=== PATIENT | female | born 1960 | race Caucasian/White ===

== ENCOUNTER 2020-05-13 10:25 | Emergency (ER) | payer SELFPAY ==
[2020-05-13] MEDS: Insulin Regular, Human 100 Units/ML 3 ML Vial ONE (10:30)
[2020-05-13] MEDS: Insulin Regular, Human 100 Units/ML 3 ML Vial SUBCUT ONE (10:30)
[2020-05-13 11:18] LABS: CHLORIDE,CL 99 mEq/L (98-106); SODIUM,NA 146 mEq/L (136-145)
[2020-05-13] MEDS: Sodium Chloride 0.9% 1,000 ML IV SCH (11:22)
[2020-05-13 11:24] LABS: O2 DELIVERY DEVICE NASAL CANNULA; O2 FLOW RATE 4.5
[2020-05-13 11:29] LABS: BASE EXCESS ARTERIAL 20.7 (-2.0-3.0); BICARBONATE,ARTERIAL 44.4 mm/L (22.0-26.0); O2 SATURATION ARTERIAL 87 % (95-98); PCO2 ARTERIAL 61 mm/Hg0 (35-45); PO2 ARTERIAL 51 mm/Hg (80-100)
[2020-05-13] MEDS: Naloxone 2 MG/2 ML Syringe IVPUSH ONE ×2 (11:32→12:36)
[2020-05-13] MEDS ORDERED: 50% Dextrose in Water 50 ML Syringe IV PRN (12:19)
[2020-05-13] MEDS ORDERED: Glucagon,Human Recombinant 1 MG Vial IM PRN (12:19)
[2020-05-13] MEDS: cefTRIAXone 2 GM Vial IVPUSH ONE (12:28)
[2020-05-13] MEDS: Potassium Chloride 20 MEQ in Premix Bag 1 BAG IV ONE (13:54)
--- NOTE | 2020-05-13 14:26 | EDM.PDOC ---
ED HPI GENERAL MEDICAL PROBLEM - General Chief Complaint: Neurological Problem Stated Complaint: WEAKNESS Time Seen by Provider: 05/13/20 10:25 Source of Information: Reports: EMS, Family History Limitations: Reports: Altered Mental Status - History of Present Illness INITIAL COMMENTS - FREE TEXT/NARRATIVE: Kristin is a 59 year old female who presents to ER per EMS with altered mental status. Daughter relates that she has been weak the last 2-3 days. Has not been eating well, vomiting. She states she has been helping her mom walk to the bathroom at times due to weakness. Daughter found her lying on the floor this am around 0800, not responding well. Called a neighbor to check on her as well and EMS was eventually called. Daughter is unaware of any head trauma, fevers. Does have chronic pain that she takes chronic narcotics for, daughter states that she is unaware of any noncompliance with her usual schedule. She does have a history of diabetes, EMS did check a sugar and noted it to be "high". IV Normal saline was initiated by EMS. EMS reports does respond to movement, sternal rub. Does not verbalize much. Blood pressure stable. Oxygen sats 90- 92% on 4 liters. Onset: Gradual Duration: Day(s):, Getting Worse Location: Reports: Generalized Severity: Severe Associated Symptoms: Reports: Confusion, Loss of Appetite, Nausea/Vomiting, Weakness. Denies: Shortness of Breath - Related Data Allergies Allergy/AdvReac Type Severity Reaction Status Date / Time No Known Allergies Allergy Verified 05/13/20 11:53 Home Meds: Home Meds Empagliflozin [Jardiance] 12.5 mg PO ASDIRECTED 05/13/20 [History] Hydrocodone/Acetaminophen [Hydrocodone-Acetamin 10-325 mg] 1 each PO ASDIRECTED 05/13/20 [History] Orphenadrine [Norflex] 100 mg PO BID PRN 05/13/20 [History] Pregabalin [Lyrica] 150 mg PO TID 05/13/20 [History] Pregabalin [Lyrica] 200 mg PO TID 05/13/20 [History] Past Medical History Musculoskeletal History: Reports: Back Pain, Chronic Endocrine/Metabolic History: Reports: Diabetes, Type II Social & Family History - Tobacco Use Tobacco Use Status *Q: Unknown Ever Used Tobacco ED ROS GENERAL - Review of Systems Review Of Systems: See Below Reason Not Obtained: obtained per daughter/EMS Constitutional: Reports: Malaise, Weakness, Fatigue, Decreased Appetite Respiratory: Denies: Shortness of Breath Cardiovascular: Denies: Chest Pain Endocrine: Reports: Fatigue GI/Abdominal: Reports: Nausea, Vomiting Neurological: Reports: Weakness - Physical Exam Exam: See Below Exam Limited By: Altered Mental Status General Appearance: Lethargic (patient nearly obtunded. Does open eyes, able to state name but needs stimulation to open eyes. ) Ears: Normal External Exam, Normal TMs Nose: Normal Inspection, Normal Mucosa, No Blood Throat/Mouth: Normal Inspection, Normal Oropharynx Head Exam: Normocephalic Neck: Normal Inspection, Supple, Non-Tender Respiratory/Chest: No Respiratory Distress, Lungs Clear Cardiovascular: Tachycardia GI/Abdominal: Normal Bowel Sounds, Soft, Non-Tender Neuro Exam (Abbreviated): Slow to Respond Extremities: Normal Inspection, No Pedal Edema Skin Exam: Dry, Cool Course - Vital Signs Last Recorded V/S: Last Vital Signs Temp 98.1 F 05/13/20 10:30 Pulse 119 H 05/13/20 10:30 Resp 20 05/13/20 10:30 BP 108/60 05/13/20 10:30 Pulse Ox 92 L 05/13/20 10:30 - Orders/Labs/Meds Orders: Active Orders 24 hr Category Date Time Status RT Arterial Blood Gases, ABG [RC] Click to Edit Care 05/13/20 10:30 Active Chest 1V Frontal [CR] Stat Exams 05/13/20 10:58 Taken Head wo Cont [CT] Stat Exams 05/13/20 10:30 Taken Dextrose 50% in Water Med 05/13/20 12:19 Active 50 ml IV ASDIRECTED PRN Glucagon,Human Recombinant [GlucaGen] Med 05/13/20 12:19 Active 1 mg IM ASDIRECTED PRN Potassium Chloride [KCL in Water 20 MEQ/100 ML] 20 meq Med 05/13/20 13:49 Active Premix Bag 1 bag IV ONETIME Sodium Chloride 0.9% [Normal Saline] 1,000 ml Med 05/13/20 11:30 Active IV ASDIRECTED Medication Orders Dextrose/Water (Dextrose 50% In Water) 50 ml IV ASDIRECTED PRN PRN Reason: Hypoglycemia Glucagon (Glucagen) 1 mg IM ASDIRECTED PRN PRN Reason: Hypoglycemia Sodium Chloride (Normal Saline) 1,000 mls @ 250 mls/hr IV ASDIRECTED DA Last Admin: 05/13/20 11:22 Dose: 250 mls/hr Documented by: CHERIE Potassium Chloride 20 meq/ (Premix) 100 mls @ 25 mls/hr IV ONETIME ONE Stop: 05/13/20 17:48 Last Admin: 05/13/20 13:54 Dose: 25 mls/hr Documented by: CHERIE Labs: Laboratory Tests 05/13/20 05/13/20 05/13/20 Range/Units 10:30 10:43 10:43 WBC 17.9 H (5.0-10.0) 10^3/uL RBC 4.67 (4.00-5.50) 10^6/uL Hgb 14.8 (12.0-16.0) g/dL Hct 44.0 (37.0-47.0) % MCV 94.2 H (82.0-94.0) fL MCH 31.7 (27.0-32.0) pg MCHC 33.6 (33.0-38.0) g/dL RDW Coeff of Danielito 14.2 (11.0-15.0) % Plt Count 240 (150-400) 10^3/uL Neut % (Auto) 86.1 H (35-85) % Lymph % (Auto) 5.3 L (10-55) % Nobles % (Auto) 8.4 (0-16) % Eos % (Auto) 0 (0-5) % Baso % (Auto) 0.2 (0-3) % Neut # (Auto) 15.38 H (1.80-7.00) 10^3/uL Lymph # (Auto) 0.95 L (1.00-4.80) 10^3/uL Nobles # (Auto) 1.50 H (0.00-0.80) 10^3/uL Eos # (Auto) 0.00 (0.00-0.45) 10^3/uL Baso # (Auto) 0.03 10^3/uL ABG pH (7.35-7.45) ABG pCO2 (35-45) mm/Hg0 ABG pO2 (80-100) mm/Hg ABG HCO3 (22.0-26.0) mm/L ABG O2 Saturation (95-98) % ABG Base Excess (-2.0-3.0) O2 Delivery Device Oxygen Flow Rate Sodium 146 H (136-145) mEq/L Potassium 3.1 L D (3.5-5.0) mEq/L Chloride 99 (98-106) mEq/L Carbon Dioxide 42 H* (21-32) mmol/L BUN 84 H* D (7-18) mg/dL Creatinine 1.9 H D (0.6-1.0) mg/dL Est Cr Clr Drug Dosing TNP Estimated GFR (MDRD) 27 L (>=60) mL/min Glucose 561 H* D (75-99) mg/dL Lactic Acid (0.4-2.0) mmol/L Calcium 15.4 H* (8.4-10.1) mg/dL Total Bilirubin 0.6 (0.0-1.0) mg/dL AST 11 L (15-37) U/L ALT 26 (12-78) U/L Alkaline Phosphatase 81 (46-116) U/L Lactate Dehydrogenase 196 H (100-190) U/L Creatine Kinase 32 (21-215) U/L Troponin I 0.034 (0.00-0.06) ng/mL C-Reactive Protein 5.2 H (0.2-0.8) mg/dL Total Protein 7.0 (6.4-8.2) g/dL Albumin 3.2 L (3.4-5.0) g/dL Urine Color Yellow (YELLOW) Urine Appearance Clear (CLEAR) Urine pH 5.0 (4.5-8.0) Ur Specific [place] 1.015 (1.003-1.020) Urine Protein Negative (NEGATIVE) mg/dL Urine Glucose (UA) 500 H (NEGATIVE) mg/dL Urine Ketones 15 H (NEGATIVE) mg/dL Urine Occult Blood Negative (NEGATIVE) Urine Nitrite Negative (NEGATIVE) Urine Bilirubin Negative (NEGATIVE) Urine Urobilinogen 0.2 (0.2-1.0) EU/dL Ur Leukocyte Esterase Negative (NEGATIVE) SARS CoV-2 RNA Rapid JAKOB (NEGATIVE) 05/13/20 05/13/20 05/13/20 Range/Units 10:43 11:23 12:37 WBC (5.0-10.0) 10^3/uL RBC (4.00-5.50) 10^6/uL Hgb (12.0-16.0) g/dL Hct (37.0-47.0) % MCV (82.0-94.0) fL MCH (27.0-32.0) pg MCHC (33.0-38.0) g/dL RDW Coeff of Danielito (11.0-15.0) % Plt Count (150-400) 10^3/uL Neut % (Auto) (35-85) % Lymph % (Auto) (10-55) % Nobles % (Auto) (0-16) % Eos % (Auto) (0-5) % Baso % (Auto) (0-3) % Neut # (Auto) (1.80-7.00) 10^3/uL Lymph # (Auto) (1.00-4.80) 10^3/uL Nobles # (Auto) (0.00-0.80) 10^3/uL Eos # (Auto) (0.00-0.45) 10^3/uL Baso # (Auto) 10^3/uL ABG pH 7.47 H (7.35-7.45) ABG pCO2 61 H (35-45) mm/Hg0 ABG pO2 51 L (80-100) mm/Hg ABG HCO3 44.4 H (22.0-26.0) mm/L ABG O2 Saturation 87 L (95-98) % ABG Base Excess 20.7 H (-2.0-3.0) O2 Delivery Device Nasal cannula Oxygen Flow Rate 4.5 Sodium (136-145) mEq/L Potassium (3.5-5.0) mEq/L Chloride (98-106) mEq/L Carbon Dioxide (21-32) mmol/L BUN (7-18) mg/dL Creatinine (0.6-1.0) mg/dL Est Cr Clr Drug Dosing Estimated GFR (MDRD) (>=60) mL/min Glucose (75-99) mg/dL Lactic Acid 2.5 H (0.4-2.0) mmol/L Calcium (8.4-10.1) mg/dL Total Bilirubin (0.0-1.0) mg/dL AST (15-37) U/L ALT (12-78) U/L Alkaline Phosphatase (46-116) U/L Lactate Dehydrogenase (100-190) U/L Creatine Kinase (21-215) U/L Troponin I (0.00-0.06) ng/mL C-Reactive Protein (0.2-0.8) mg/dL Total Protein (6.4-8.2) g/dL Albumin (3.4-5.0) g/dL Urine Color (YELLOW) Urine Appearance (CLEAR) Urine pH (4.5-8.0) Ur Specific [place] (1.003-1.020) Urine Protein (NEGATIVE) mg/dL Urine Glucose (UA) (NEGATIVE) mg/dL Urine Ketones (NEGATIVE) mg/dL Urine Occult Blood (NEGATIVE) Urine Nitrite (NEGATIVE) Urine Bilirubin (NEGATIVE) Urine Urobilinogen (0.2-1.0) EU/dL Ur Leukocyte Esterase (NEGATIVE) SARS CoV-2 RNA Rapid JAKOB Negative (NEGATIVE) Meds: Medications Generic Name Dose Route Start Last Admin Trade Name Freq PRN Reason Stop Dose Admin Dextrose/Water 50 ml 05/13/20 12:19 Dextrose 50% In Water IV ASDIRECTED PRN Hypoglycemia Glucagon 1 mg 05/13/20 12:19 Glucagen IM ASDIRECTED PRN Hypoglycemia Sodium Chloride 1,000 mls @ 250 mls/hr 05/13/20 11:30 05/13/20 11:22 Normal Saline IV 250 mls/hr ASDIRECTED DA Administration Potassium Chloride 20 meq/ 100 mls @ 25 mls/hr 05/13/20 13:49 05/13/20 13:54 Premix IV 05/13/20 17:48 25 mls/hr ONETIME ONE Administration Discontinued Medications Generic Name Dose Route Start Last Admin Trade Name Freq PRN Reason Stop Dose Admin Ceftriaxone Sodium 2 gm 05/13/20 12:12 05/13/20 12:28 Rocephin IVPUSH 05/13/20 12:13 2 gm ONETIME ONE Administration Insulin Human Regular Confirm 05/13/20 10:08 05/13/20 10:30 Humulin R Administered 05/13/20 10:09 Not Given Dose 300 unit .ROUTE .STK-MED ONE Insulin Human Regular 10 unit 05/13/20 10:30 05/13/20 10:30 Humulin R SUBCUT 05/13/20 10:31 10 units ONETIME ONE Administration Naloxone HCl 0.4 mg 05/13/20 11:18 05/13/20 11:32 Narcan IVPUSH 05/13/20 11:19 0.4 mg ONETIME ONE Administration Naloxone HCl 0.4 mg 05/13/20 12:24 05/13/20 12:36 Narcan IVPUSH 05/13/20 12:25 0.4 mg ONETIME ONE Administration - Re-Assessments/Exams Free Text/Narrative Re-Assessment/Exam: 05/13/20 1045-Patient lethargic to obtunded. Does respond to sternal rub/verbal stimuli at times. Blood sugar still shows high on arrival. IV fluid bolus infusing. Telemetry shows sinus tachycardia. Regular insulin 10 units given. Labs drawn. 1115-Med list obtained, pharmacy review done. Did give Narcan with no change in status. continues to open eyes. Will state name. Head CT done as well as chest xray. Blood pressure did drop for short period of time after returned. Oxygen requirements increasing, does now have a NRB mask on at 10 liters to maintain sat at 94-95%. 1200- Labs all reviewed, head CT normal. IV second liter started. Ceftriaxone given. Contacted [facility] after speaking with daughter and spoke with Dr. He. Status given, labs reported. Agreed to accept the patient in transfer. Risks and benefits of transfer discussed with daughter. risks of transfer include worsening status, plane crash or . Benefits of transfer include specialized care, further testing and treatment. Benefits of non transfer include care close to home. Risks of non transfer include worsening status and possible . Daughter agrees to transfer. Departure - Departure Time of Disposition: 17:06 Disposition: DC/Tfer to Acute Hospital 02 Condition: Critical Clinical Impression: Diabetes mellitus, Hypercalcemia, Acute kidney injury - Discharge Information *PRESCRIPTION DRUG MONITORING PROGRAM REVIEWED*: No *COPY OF PRESCRIPTION DRUG MONITORING REPORT IN PATIENT NAIN: No Referrals: Magdi Keller MD [Primary Care Provider] - Forms: ED Department Discharge Additional Instructions: Patient transferred [facility] to Dr. He as accepting physician. Sepsis Event Note (ED) - Focused Exam Vital Signs: Vital Signs Temp Pulse Resp BP Pulse Ox 05/13/20 10:30 98.1 F 119 H 20 108/60 92 L - My Orders Last 24 Hours: My Active Orders 05/13/20 10:30 RT Arterial Blood Gases, ABG [RC] Click to Edit Head wo Cont [CT] Stat 05/13/20 10:58 Chest 1V Frontal [CR] Stat 05/13/20 11:30 Sodium Chloride 0.9% [Normal Saline] 1,000 ml IV ASDIRECTED 05/13/20 12:19 Dextrose 50% in Water 50 ml IV ASDIRECTED PRN Glucagon,Human Recombinant [GlucaGen] 1 mg IM ASDIRECTED PRN 05/13/20 13:49 Potassium Chloride [KCL in Water 20 MEQ/100 ML] 20 meq Premix Bag 1 bag IV ONETIME - Assessment/Plan Last 24 Hours: My Active Orders 05/13/20 10:30 RT Arterial Blood Gases, ABG [RC] Click to Edit Head wo Cont [CT] Stat 05/13/20 10:58 Chest 1V Frontal [CR] Stat 05/13/20 11:30 Sodium Chloride 0.9% [Normal Saline] 1,000 ml IV ASDIRECTED 05/13/20 12:19 Dextrose 50% in Water 50 ml IV ASDIRECTED PRN Glucagon,Human Recombinant [GlucaGen] 1 mg IM ASDIRECTED PRN 05/13/20 13:49 Potassium Chloride [KCL in Water 20 MEQ/100 ML] 20 meq Premix Bag 1 bag IV ONETIME
[2020-05-13 15:12] VITALS: BP 108/60; PULSE 119
== END 2020-05-13 13:50 ==
LOC: CC.ED 10:25
DX: N17.9 Acute kidney failure, unspecified (principal); E11.9 Type 2 diabetes mellitus without complications; E83.52 Hypercalcemia; Z20.822 Contact with and (suspected) exposure to COVID-19
CPT/HCPCS: 36415; 36600; 51702; 70450; 71045; 80053; 81003; 82550; 82803; 83605; 83615; 84484; 85025; 86140; 93005; 96374; 96375; 96376; 99285-25; J0696; J1815-GY; J2310; J3480; J7030; U0002